=== PATIENT | male | born 1950 | race Asian ===

== ENCOUNTER 2018-10-29 10:04 | Day surgery (SDC) | payer MEDICARE, OTHER ==
[~2018-10-29] VITALS: Ht 167.6 cm; Wt 73.7 kg
[~2018-10-29 10:04] MED LIST: PROPOFOL 200 MG INJ ONE
[2018-10-29 11:13] VITALS: Ht 167.6 cm; Wt 73.7 kg
[2018-10-29 11:15] VITALS: BP 117/64; PULSE 73; RESP 18
[2018-10-29] MEDS ORDERED: ALLO100T PO (11:23)
[2018-10-29] MEDS ORDERED: NAPR-688 PO (11:23)
[2018-10-29] MEDS ORDERED: METO-448 PO (11:23)
[2018-10-29] MEDS ORDERED: AMLO-147 PO (11:23)
[2018-10-29] MEDS ORDERED: ATOR40TA68 PO (11:23)
[2018-10-29] MEDS ORDERED: TERA2CAP3 PO (11:23)
[2018-10-29] MEDS ORDERED: LOSA25TA12 PO (11:23)
[2018-10-29] MEDS ORDERED: INDA1.25 PO (11:23)
[2018-10-29] MEDS ORDERED: OMEP20CA16 PO (11:23)
[2018-10-29] MEDS ORDERED: ASPI-817 PO (11:23)
--- NOTE | 2018-10-29 11:24 | PREAC ---
Date/Time of Note Date/Time of Note DATE: 10/29/18 TIME: 11:23 Anesthesia Eval and Record Evaluation Time Pre-Procedure Interview DATE: 10/29/18 TIME: 11:23 Age 67 Sex male NPO: 8 hrs Preoperative diagnosis screening Planned procedure colonoscopy Past Medical History Past Medical History: Includes Cardio: HTN, Dyslipidemia Renal: Other (gout) GI: GERD Surgery & Anesthesia Issues No known issue Meds Anticoagulation: No Beta Karoline within 24 hr: No Reason Beta Karoline not given: Pt. not on B-Karoline Meds reviewed: Yes Allergies Coded Allergies: No Known Allergy (Unverified , 10/29/18) Allergies Reviewed: Yes Labs/Studies Labs Reviewed: Reviewed by anesthesiologist test: N/A Studies: ECG (n/a), CXR (n/a) Pre-procedure Exam Airway: Adequate mouth opening Mallampati: Mallampati I Teeth: Normal Lung: Normal Heart: Normal ASA Physical Status ASA physical status: 2 Emergency: None Planned Anesthetic General/MAC: MAC Planned Pain Management Parenteral pain med Pre-operative Attestations Prior to commencing anesthesia and surgery, the patient was re-evaluated, there was verification of: *The patient's identity *The results of appropriate recent lab work and preoperative vital signs *The above evaluation not changing prior to induction *Anesthetic plan, risk benefits, alternative and complications discussed with patient/family; questions answered; patient/family understands, accepts and wishes to proceed. CHRISTIANO HARRISON MD Oct 29, 2018 11:24
[2018-10-29] MEDS ORDERED: PROPOFOL 20 ML ONE (11:25)
[2018-10-29] MEDS ORDERED: ONDANSETRON 4 MG INJ IV PRN (11:30)
[2018-10-29 12:33] VITALS: BP 124/64; PULSE 71; RESP 18
--- NOTE | 2018-10-29 13:01 | PAC ---
Date/Time of Note Date/Time of Note DATE: 10/29/18 TIME: 13:01 Post-Anesthesia Notes Post-Anesthesia Note Last documented vital signs Vital Signs Date Temp Pulse Resp B/P (MAP) Pulse Ox O2 O2 Flow FiO2 Time Delivery Rate 10/29/18 98.4 73 18 117/64 99 Room Air 11:15 (81) Activity: WNL Respiratory function: WNL Cardiovascular function: WNL Mental status: Baseline Pain reasonably controlled: Yes Hydration appropriate: Yes Nausea/Vomiting absent: No CHRISTIANO HARRISON MD Oct 29, 2018 13:01
== END 2018-10-29 14:11 | disposition home or self-care (01) ==
LOC: GIL 10:04
PROVIDERS: ATTEND Internal Medicine Gastroenterology
DX: Z12.11 Encounter for screening for malignant neoplasm of colon (principal); D12.2 Benign neoplasm of ascending colon; D12.3 Benign neoplasm of transverse colon; D12.5 Benign neoplasm of sigmoid colon; I10 Essential (primary) hypertension; E78.5 Hyperlipidemia, unspecified
CPT/HCPCS: 88305